=== PATIENT | male | born 1980 | race Two or more races ===

== ENCOUNTER 2016-07-16 15:33 | Emergency (ER) | payer OTHER ==
[2016-07-16 17:36] VITALS: BP 115/70
--- NOTE | 2016-07-16 17:40 | UC ---
Skin Complaint HPI - HPI Summary HPI Summary: Hit head on a nail in the atttic a few hours ago---was bleeding--Is no longer bleeding wanted to be sure it did not need stitches - History of Current Complaint Chief Complaint: UCLaceration Time Seen by Provider: 07/16/16 17:36 Stated Complaint: PUNCTURE WOUND TO HEAD Hx Obtained From: Patient Onset/Duration: Sudden Onset Skin Exposure Onset/Duration: Hours Ago Timing: Constant Onset Severity: Mild Current Severity: Mild Pain Intensity: 1 Pain Scale Used: 0-10 Numeric Location: Discrete - top of head Aggravating: Nothing Alleviating: Nothing Associated Signs & Symptoms: Positive: Negative Related History: Trauma - Allergy/Home Medications Allergies/Adverse Reactions: Allergies Allergy/AdvReac Type Severity Reaction Status Date / Time No Known Allergies Allergy Verified 07/16/16 17:36 Review of Systems Constitutional: Negative Skin: Other - 0.5 cm superfical abrasion a top of head Eyes: Negative ENT: Negative Respiratory: Negative Cardiovascular: Negative Gastrointestinal: Negative Genitourinary: Negative Motor: Negative Neurovascular: Negative Musculoskeletal: Negative Neurological: Negative Psychological: Negative All Other Systems Reviewed And Are Negative: Yes PMH/Surg Hx/FS Hx/Imm Hx Previously Healthy: Yes Endocrine History Of: Denies: Diabetes, Thyroid Disease Cardiovascular History Of: Denies: Cardiac Disorders, Hypertension Respiratory History Of: Denies: COPD, Asthma GI/ History Of: Denies: Ulcer - Surgical History Surgical History: None - Family History Known Family History: Positive: None Family History: no reported cardio vascular issues in family lineage - Social History Occupation: Employed Full-time Lives: With Family Alcohol Use: Weekly Substance Use Type: None Smoking Status (MU): Former Smoker - Immunization History Most Recent Tetanus Shot: 2010 Physical Exam Triage Information Reviewed: Yes Appearance: Well-Appearing, No Pain Distress, Well-Nourished Vital Signs: Initial Vital Signs Temp 98.1 F 07/16/16 17:30 Pulse 59 07/16/16 17:30 Resp 18 07/16/16 17:30 BP 115/70 07/16/16 17:30 Pulse Ox 99 07/16/16 17:30 Vital Signs Reviewed: Yes Eye Exam: Normal Eyes: Positive: Conjunctiva Clear ENT Exam: Normal ENT: Positive: Normal ENT inspection, Hearing grossly normal, TMs normal, Tonsillar swelling, Tonsillar exudate. Negative: Nasal congestion, Nasal drainage, Trismus, Muffled/hoarse voice Dental Exam: Normal Neck exam: Normal Neck: Positive: Supple, Nontender Respiratory Exam: Normal Respiratory: Positive: Chest non-tender, No respiratory distress, No accessory muscle use Cardiovascular Exam: Normal Cardiovascular: Positive: RRR, Brisk Capillary Refill Musculoskeletal Exam: Normal Musculoskeletal: Positive: Strength Intact, ROM Intact, No Edema Neurological Exam: Normal Neurological: Positive: Alert, Muscle Tone Normal Psychological Exam: Normal Psychological: Positive: Normal Response To Family, Age Appropriate Behavior Skin Exam: Other Skin: Positive: Other - 0.5 cm laceration top of head not open no bleeding Course/Dx - Course Course Of Treatment: Soap and water wash follow with pcp prn, tylenol for discomfort - Differential Diagnoses - Skin Complaint Differential Diagnoses: Cellulitis, Other - Abrasion - Diagnoses Provider Diagnoses: 0.5 cm abrasion on head Discharge - Discharge Plan Condition: Stable Disposition: HOME Patient Education Materials: Ibuprofen (By mouth), Puncture Wound (ED) Referrals: [facility] [Outside] - If Needed No Primary Care Phys,NOPCP [Medical Doctor] -
== END 2016-07-16 17:50 | disposition home or self-care (01) ==
LOC: UCEAST 15:33
DX: S00.01XA Abrasion of scalp, initial encounter (principal); W22.09XA Striking against other stationary object, initial encounter; Y93.9 Activity, unspecified
CPT/HCPCS: 99211; G0463